=== PATIENT | female | born 1950 | race Two or more races ===

== ENCOUNTER 2024-06-05 21:48 | Inpatient (IN) | payer OTHER ==
[~2024-06-05] VITALS: Ht 152.4 cm; Wt 54.4 kg
[2024-06-05] MEDS ORDERED: COZAAR25 MG PO (22:08)
[2024-06-05] MEDS ORDERED: METHYLPREDNISOLONE SOD SUCC 125 MG VIAL ONE (22:37)
[2024-06-05] MEDS ORDERED: METHYLPREDNISOLONE SOD SUCC 125 MG VIAL IV ONE (22:45)
[2024-06-05] MEDS ORDERED: IPRATROPIUM BROMIDE 0.5 MG/2.5 ML AMPUL.NEB IH SCH (22:45)
[2024-06-05] MEDS ORDERED: LEVALBUTEROL HCL 0.63 MG/3 ML SOLUTION IH SCH (22:45)
[2024-06-05] MEDS ORDERED: LEVALBUTEROL HCL 0.63 MG/3 ML SOLUTION IH ONE (23:58)
[2024-06-05] MEDS ORDERED: IPRATROPIUM BROMIDE 0.5 MG/2.5 ML AMPUL.NEB IH ONE (23:58)
[2024-06-06 00:09] LABS: HEMATOCRIT 43.5 % (36.0-45.00); HEMOGLOBIN 14.2 g/dL (12.0-15.00); MEAN CELL VOLUME 86.5 fL (80.00-100.00); MEAN CORPUSCULAR HEMOGLOBIN 28.3 pg (27.00-32.0); MEAN CORPUSCULAR HGB CONC 32.7 g/dl (32.0-36.0); PLATELET COUNT 257 K/uL (150-450); RED BLOOD COUNT 5.03 M/uL (4.00-6.00); RED CELL DISTRIBUTION WIDTH 14.3 % (11.5-14.5)
[2024-06-06 00:13] LABS: ABG PH 7.517 (7.35-7.45); ABG PO2 109.1 mmHg (80-100); SaO2 98.7 %
[2024-06-06 00:14] LABS: BASE EXCESS -1.2 mmol/l; BICARBONATE 19.8 mmol/l (23-25); Tco2 20.6 mmol/l; allen test SATISFACTORY; o2 28 %; puncture site RADIAL LEFT
[2024-06-06] MEDS ORDERED: LEVALBUTEROL HCL 0.63 MG/3 ML SOLUTION IH STA (04:11)
[2024-06-06] MEDS ORDERED: levoFLOXacin IN DEXTROSE 5 % 500MG/100ML PIGGYBAG IV STA (04:13)
[2024-06-06] MEDS ORDERED: levoFLOXacin IN DEXTROSE 5 % 500MG/100ML PIGGYBAG IV ONE (04:18)
[2024-06-06] MEDS ORDERED: LEVALBUTEROL HCL 0.63 MG/3 ML SOLUTION IH ONE (05:04)
[2024-06-06] MEDS ORDERED: LEVALBUTEROL HCL 0.63 MG/3 ML SOLUTION IH SCH (06:00)
[2024-06-06 08:08] LABS: PH,URINE 5.5 (5.0-8.0); URINE APPEARANCE Clear; URINE BILIRRUBIN Negative (NEGATIVE); URINE BLOOD Negative; URINE COLOR Yellow; URINE KETONE Trace (NEGATIVE); URINE LEUKOCYTE Negative; URINE NITRATE Negative; URINE PROTEIN Negative (NEGATIVE); URINE UROBILINOGEN 0.2 E.U./dl
[2024-06-06 08:12] LABS: URINE BACTERIA 128.5 uL (0.0-1933); URINE EPITHELIAL CELLS 21.5 uL (0.0-38.8); URINE RBC 13.9 uL (0.0-20.8); URINE WBC 5.2 uL (0.0-23.2)
[2024-06-06 08:17] LABS: URINE CAST 0.44 uL (0.0-1.40); URINE GLUCOSE 500 MG/DL (NEGATIVE)
[2024-06-06] MEDS ORDERED: LEVALBUTEROL HCL 1.25 MG/3 ML SOLUTION IH ONE ×2 (08:29→18:20)
[2024-06-06] MEDS ORDERED: METHYLPREDNISOLONE SOD SUCC 125 MG VIAL ONE (13:39)
[2024-06-06] MEDS ORDERED: BROMPHENIR-PSE118 ML (13:53)
[2024-06-06] MEDS ORDERED: [UNRECOGNIZED DRUG - OTHER] (13:56)
[2024-06-06] MEDS ORDERED: LEVALBUTEROL HCL 1.25 MG/3 ML SOLUTION IH SCH (14:12)
[2024-06-06] MEDS ORDERED: IPRATROPIUM BROMIDE 0.5 MG/2.5 ML AMPUL.NEB IH SCH (14:12)
[2024-06-06] MEDS ORDERED: 0.9 % SODIUM CHLORIDE 1,000 ML IV SCH (14:15)
[2024-06-06] MEDS ORDERED: BENZONATATE 100 MG CAPSULE PO SCH (14:15)
[2024-06-06] MEDS ORDERED: FAMOTIDINE/PF 20 MG/2 ML VIAL IV SCH (14:16)
[2024-06-06] MEDS ORDERED: DOXYCYCLINE HYCLATE 100MG IV SCH (14:17)
[2024-06-06] MEDS ORDERED: SERTRALINE HCL 25 MG TABLET PO SCH (14:18)
[2024-06-06] MEDS ORDERED: ACETAMINOPHEN 500 MG GEL..CAP PO PRN (14:30)
[2024-06-06] MEDS ORDERED: GUAIFENESIN/DEXTROMETHORPHAN 5ML BLIST.PACK PO SCH (16:00)
[2024-06-06] MEDS ORDERED: METHYLPREDNISOLONE SOD SUCC 40 MG VIAL ONE (16:59)
[2024-06-06] MEDS ORDERED: FAMOTIDINE/PF 20 MG/2 ML VIAL ONE (16:59)
[2024-06-06] MEDS ORDERED: GUAIFEN/DEXTROMETHORPHAN/PE 10 ML BLIST.PACK PO ONE (17:04)
[2024-06-06 17:24] VITALS: BP 143/69; O2SAT 96
[2024-06-06] MEDS ORDERED: METHYLPREDNISOLONE SOD SUCC 40 MG VIAL IV SCH (18:00)
[2024-06-06] MEDS ORDERED: IPRATROPIUM BROMIDE 0.5 MG/2.5 ML AMPUL.NEB IH ONE (18:21)
[2024-06-06] MEDS ORDERED: HYDROCODONE/CHLORPHEN P-STIREX 5 ML ML PO SCH (21:00)
[2024-06-06 22:51] VITALS: O2SAT 96
[2024-06-07] VITALS (10 sets, daily range): BP systolic 115–129; BP diastolic 67–75; O2SAT 91–98
[2024-06-07 06:40] LABS: HEMATOCRIT 41.7 % (36.0-45.00); HEMOGLOBIN 13.6 g/dL (12.0-15.00); MEAN CELL VOLUME 86.5 fL (80.00-100.00); MEAN CORPUSCULAR HEMOGLOBIN 28.2 pg (27.00-32.0); MEAN CORPUSCULAR HGB CONC 32.6 g/dl (32.0-36.0); PLATELET COUNT 219 K/uL (150-450); RED BLOOD COUNT 4.82 M/uL (4.00-6.00); RED CELL DISTRIBUTION WIDTH 14.9 % (11.5-14.5)
[2024-06-07 06:55] LABS: INR 0.99; PARTIAL THROMBOPLASTIN TIME 24.8 SECONDS (22.0-34.0); PROTHROMBIN TIME 10.8 SECONDS (9.0-11.5)
[2024-06-07 07:23] LABS: ALBUMIN 2.8 gm/dL (3.4-5.0); BILIRUBIN TOTAL 0.41 mg/dL (0.3-1.2); CALCIUM 9.3 mg/dL (8.5-10.1); CREATININE SERUM 0.56 mg/dL (0.55-1.02); GFR 105.53; GLOBULINA 3.3 G/DL (2.4-3.5); MAGNESIUM 2.2 mg/dL (1.8-2.4); PHOSPHOROUS 3.6 mg/dL (2.5-4.9); POTASSIUM 4.11 mEq/L (3.5-5.1); T4 FREE 1.01 NG/ML (0.76-1.46); TOTAL PROTEIN 6.1 gm/dL (6.4-8.2)
[2024-06-07 07:25] LABS: C-REACTIVE PROTEIN 6.11 MG/DL (0.00-0.29); CHOL HDL RATIO 3.4 (0-5.0); TSH 0.183 uIU/mL (0.358-3.74)
[2024-06-07] MEDS ORDERED: DOXYCYCLINE HYCLATE 100MG IV ONE (07:35)
[2024-06-07 07:42] LABS: ERYTHROCYTE SEDIMENTATION RATE 67 mm/hr
[2024-06-07] MEDS ORDERED: LOSARTAN POTASSIUM 25 MG TABLET PO SCH (09:00)
[2024-06-07] MEDS ORDERED: BENZONATATE 200 MG CAPSULE PO SCH (09:00)
[2024-06-07] MEDS ORDERED: ASPIRIN 81 MG TABLET.EC PO SCH (09:00)
[2024-06-07] MEDS ORDERED: GUAIFENESIN/DEXTROMETHORPHAN 5ML BLIST.PACK PO SCH (12:00)
[2024-06-07] MEDS ORDERED: METHYLPREDNISOLONE SOD SUCC 40 MG VIAL IV SCH (13:00)
[2024-06-07] MEDS ORDERED: IPRATROPIUM/ALBUTEROL SULFATE 3 ML AMPUL.NEB IH SCH (13:00)
[2024-06-07] MEDS ORDERED: LACTOBACILLUS ACIDOPHILUS 1 CAP CAP PO SCH (17:00)
[2024-06-07] MEDS ORDERED: ATORVASTATIN CALCIUM 20 MG TABLET PO SCH (17:00)
[2024-06-08] VITALS (8 sets, daily range): BP systolic 121–150; BP diastolic 59–80; O2SAT 90–98
[2024-06-08 01:30] LABS: PH,URINE 5.5 (5.0-8.0); URINE APPEARANCE Cloudy; URINE BILIRRUBIN Negative (NEGATIVE); URINE BLOOD Negative; URINE COLOR Yellow; URINE GLUCOSE Negative (NEGATIVE); URINE KETONE Negative (NEGATIVE); URINE LEUKOCYTE Negative; URINE NITRATE Negative; URINE PROTEIN Negative (NEGATIVE); URINE UROBILINOGEN 0.2 E.U./dl
[2024-06-08 01:33] LABS: URINE BACTERIA 879.9 uL (0.0-1933); URINE EPITHELIAL CELLS 50.3 uL (0.0-38.8); URINE RBC 5.5 uL (0.0-20.8); URINE WBC 25.9 uL (0.0-23.2)
[2024-06-08] MEDS ORDERED: DEXTROSE 50 % IN WATER 0.5 G/ML DISP.SYRIN IV PRN (09:00)
[2024-06-08] MEDS ORDERED: levoFLOXacin IN DEXTROSE 5 % 5 MG/ML PIGGYBAG IV SCH (09:00)
[2024-06-08] MEDS ORDERED: INSULIN LISPRO 1,000 UNIT/10 ML UNITS SUBCUTANEO PRN (09:00)
[2024-06-08] MEDS ORDERED: METHYLPREDNISOLONE SOD SUCC 40 MG VIAL IV SCH (13:00)
[2024-06-09] VITALS (8 sets, daily range): BP systolic 125–160; BP diastolic 66–85; O2SAT 92–97
[2024-06-09 04:56] LABS: HEMATOCRIT 37.3 % (36.0-45.00); HEMOGLOBIN 12.5 g/dL (12.0-15.00); MEAN CELL VOLUME 85.7 fL (80.00-100.00); MEAN CORPUSCULAR HEMOGLOBIN 28.6 pg (27.00-32.0); MEAN CORPUSCULAR HGB CONC 33.4 g/dl (32.0-36.0); PLATELET COUNT 196 K/uL (150-450); RED BLOOD COUNT 4.35 M/uL (4.00-6.00); RED CELL DISTRIBUTION WIDTH 14.9 % (11.5-14.5)
[2024-06-09 04:59] LABS: ERYTHROCYTE SEDIMENTATION RATE 22 mm/hr
[2024-06-09 05:34] LABS: ALBUMIN 2.5 gm/dL (3.4-5.0); BILIRUBIN TOTAL 0.41 mg/dL (0.3-1.2); CALCIUM 8.9 mg/dL (8.5-10.1); CREATININE SERUM 0.6 mg/dL (0.55-1.02); GFR 97.46; GLOBULINA 2.8 G/DL (2.4-3.5); POTASSIUM 4.36 mEq/L (3.5-5.1); TOTAL PROTEIN 5.3 gm/dL (6.4-8.2)
[2024-06-09 05:40] LABS: C-REACTIVE PROTEIN 0.58 MG/DL (0.00-0.29)
[2024-06-09] MEDS ORDERED: METHYLPREDNISOLONE SOD SUCC 40 MG VIAL IV SCH (13:00)
[2024-06-09] MEDS ORDERED: GUAIFENESIN PO SCH (20:00)
[2024-06-09] MEDS ORDERED: [UNRECOGNIZED DRUG - OTHER] PO SCH (20:00)
[2024-06-09] MEDS ORDERED: FAMOtidine 20 MG TABLET PO SCH (21:00)
[2024-06-10 00:19] VITALS: O2SAT 90
[2024-06-10 00:34] VITALS: BP 132/68
[2024-06-10 03:03] VITALS: O2SAT 90
[2024-06-10] MEDS ORDERED: GUAIFENESIN/DEXTROMETHORPHAN 100MG/10ML BLIST.PACK PO SCH (08:00)
[2024-06-10 09:13] VITALS: O2SAT 94
[2024-06-10 09:14] VITALS: BP 139/78; O2SAT 99
[2024-06-10 11:19] LABS: ABG PO2 70.7 mmHg (80-100); BASE EXCESS 3.2 mmol/l; BICARBONATE 25.9 mmol/l (23-25); SaO2 95.6 %; Tco2 26.9 mmol/l
[2024-06-10 11:20] LABS: allen test SATISFACTORY; o2 21 %; puncture site RADIAL LEFT
[2024-06-10] MEDS ORDERED: IPRAT-ALBUT 0.5-3 ML IH (11:54)
[2024-06-10] MEDS ORDERED: LOSARTAN POTASS25 MG PO (11:58)
[2024-06-10] MEDS ORDERED: INTESTINEX680 M1 PO (11:58)
[2024-06-10] MEDS ORDERED: SERTRALINE HCL25 MG PO (11:58)
[2024-06-10] MEDS ORDERED: BENZONATATE200 M1 PO (11:58)
[2024-06-10] MEDS ORDERED: LEVOFLOXACIN750 MG PO (11:58)
[2024-06-10] MEDS ORDERED: ST. JOSEPH ASPI81 M2 PO (11:58)
[2024-06-10] MEDS ORDERED: FAMOTIDINE20 MG PO (11:58)
[2024-06-10] MEDS ORDERED: LIPITOR20 MG PO (11:58)
[2024-06-10] MEDS ORDERED: CLONAZEPAM0.5 MG PO (12:00)
[2024-06-10] MEDS ORDERED: METHYLPREDNISOLONE SOD SUCC 40 MG VIAL IV SCH (21:00)
== END 2024-06-10 15:33 | disposition home or self-care (01) | DRG 203 ==
LOC: ER 21:50 → MEDJ 06-06 18:09 → MEDI 06-06 18:09
PROVIDERS: Emergency Medicine; General Practice; ADMIT Internal Medicine; ATTEND Internal Medicine
PROC: 4A12X4Z Monitoring of Cardiac Electrical Activity, External Approach (ICD-10-PCS; principal; 2024-06-06)
DX: J45.41 Moderate persistent asthma with (acute) exacerbation (principal); I10 Essential (primary) hypertension; E11.65 Type 2 diabetes mellitus with hyperglycemia; Z79.4 Long term (current) use of insulin